=== PATIENT | male | born 1945 | race Caucasian/White ===

== ENCOUNTER 2024-04-30 10:07 | Day surgery (SDC) | payer OTHER, BC ==
[2024-04-23 15:21] VITALS: BMI 23.6
[2024-04-30] MEDS: TROPICAMIDE 1% OPHTH SOLN 15 ML BOTTLE ONE (10:40)
[2024-04-30] MEDS: CIPROFLOXACIN 0.3% EYE DROPS 5 ML BOTTLE ONE (10:40)
[2024-04-30] MEDS: PHENYLEPHRINE 2.5% OPTHALMIC DROP 2ML BOTTLE ONE (10:40)
[2024-04-30] MEDS: CYCLOPENTOLATE 2% OPHTH SOLN 2 ML BOTTLE ONE (10:40)
[2024-04-30] MEDS ORDERED: TETRACAINE 0.5% OPHTH SOLN 2 ML BOTTLE ONE (10:51)
[2024-04-30] MEDS ORDERED: BSS (NA/CA/MG/K) BALANCED SALT SOLUTION OPHTH SOLN 15 ML BOTTLE ONE (10:51)
[2024-04-30] MEDS ORDERED: LIDOCAINE 1% P/F 10 MG/ML VIAL ONE (10:51)
[2024-04-30] MEDS ORDERED: NEO/POLYMYX B SULF/DEXAMETH OPHTHALMIC 5ML BOTTLE ONE (10:51)
[2024-04-30] MEDS ORDERED: CARBACHOL 0.01% INTRA-OCULAR 1.5 ML VIAL ONE (10:51)
[2024-04-30] MEDS ORDERED: MIDAZOLAM HCL 2 MG/2 ML SINGLE DOSE VIAL ONE (11:30)
[2024-04-30 12:46] VITALS: RESP 18; TEMP 97.3
[2024-04-30 12:50] VITALS: BP 125/70; PULSE 64
== END 2024-04-30 12:53 | disposition home or self-care (01) ==
LOC: FASU 10:07
PROVIDERS: ATTEND Ophthalmology
PROC: 08RJ3JZ Replacement of Right Lens with Synthetic Substitute, Percutaneous Approach (ICD-10-PCS; principal; 2024-04-30 11:52)
DX: H26.8 Other specified cataract (principal)
CPT/HCPCS: 66984; V2632